=== PATIENT | male | born 1935 | race Caucasian/White ===

== ENCOUNTER → 2016-08-04 | Outpatient (CLI) | payer MEDICARE, OTHER ==
--- NOTE | 2016-08-05 07:03 | CT ---
EXAMINATION TYPE: CT brain wo/w con DATE OF EXAM: 08/04/2016 5:28 PM COMPARISON: NONE HISTORY: Patient complains of chronic headache. Patient has history of dementia. CT DLP: 2166 mGycm Automated exposure control for dose reduction was used. CONTRAST: CT scan of the head is performed without and with IV Contrast, patient injected with 100 mL of Omnipa que 300. FINDINGS: Noncontrast images show no acute intracranial hemorrhage or midline shift. There is ventricular and s ulcal prominence consistent with diffuse cerebral atrophy. There is low-attenuation in the periventri cular white matter. There is mild to moderate mucosal thickening involving ethmoid sinuses bilaterall y, left greater than right with some patchy opacity seen. There is mild to moderate mucosal thickenin g involving smaller caliber left sphenoid sinus. Remainder of visualized paranasal sinuses are clear. The globes are intact bilaterally. IMPRESSION: There is mild to moderate diffuse cerebral atrophy and mild chronic small vessel ischemic change. No suspicious enhancing intraparenchymal mass is noted. Acute on chronic ethmoid sinus disease.
== END ==
LOC: RADCTMAIN 16:53
PROVIDERS: ATTEND Family Medicine
DX: G31.9 Degenerative disease of nervous system, unspecified (principal); F02.80 Dementia in other diseases classified elsewhere, unspecified severity, without behavioral disturbance, psychotic disturbance, mood disturbance, and anxiety; I67.82 Cerebral ischemia; J01.20 Acute ethmoidal sinusitis, unspecified; J32.2 Chronic ethmoidal sinusitis
CPT/HCPCS: 70470; Q9967